=== PATIENT | male | born 1935 | race Caucasian/White ===

== ENCOUNTER → 2016-12-29 | Outpatient (CLI) | payer MEDICARE | END | disposition home or self-care (01) | LOC: PCVCIMAG 13:43 | PROVIDERS: ATTEND Nuclear Medicine Nuclear Cardiology | DX: I70.211 Atherosclerosis of native arteries of extremities with intermittent claudication, right leg (principal); I72.3 Aneurysm of iliac artery; I25.10 Atherosclerotic heart disease of native coronary artery without angina pectoris; I10 Essential (primary) hypertension; J44.9 Chronic obstructive pulmonary disease, unspecified; F17.200 Nicotine dependence, unspecified, uncomplicated; E78.00 Pure hypercholesterolemia, unspecified | CPT/HCPCS: 93925; G0463 ==

== ENCOUNTER → 2017-03-04 | Outpatient (CLI) | payer MEDICARE | END | disposition home or self-care (01) | LOC: PCVCCLINIC 10:42 | PROVIDERS: ATTEND Internal Medicine Cardiovascular Disease | DX: I25.10 Atherosclerotic heart disease of native coronary artery without angina pectoris (principal); I10 Essential (primary) hypertension; I73.9 Peripheral vascular disease, unspecified; I77.89 Other specified disorders of arteries and arterioles; E78.5 Hyperlipidemia, unspecified; R27.0 Ataxia, unspecified; J44.9 Chronic obstructive pulmonary disease, unspecified; I65.23 Occlusion and stenosis of bilateral carotid arteries; F17.200 Nicotine dependence, unspecified, uncomplicated; E78.00 Pure hypercholesterolemia, unspecified; Z89.412 Acquired absence of left great toe; Z79.82 Long term (current) use of aspirin | CPT/HCPCS: 80061; 93005; G0463 ==

== ENCOUNTER → 2017-06-25 | Outpatient (CLI) | payer MEDICARE ==
--- NOTE | 2017-06-25 14:34 | PCVCIMAG ---
EXAM: NONINVASIVE ARTERIAL EXAMINATION OF BOTH LOWER EXTREMITIES INCLUDING PRE AND POST EXERCISE PRESSURE MEASUREMENTS AND DOPPLER WAVEFORMS INDICATION: Peripheral Arterial Disease. Leg pain. FINDINGS: Right Brachial: 194 mm Hg. Right Dorsalis Pedis: 200 mm Hg. Right Posterior Tibial: 189 mm Hg. Right ROMEL = 1.03. Left Brachial: 183 mm Hg. Left Dorsalis Pedis: 188 mm Hg. Left Posterior Tibial: 208 mm Hg. Left ROMEL = 1.07. Post Exercise: Right Brachial 188 mm Hg. Right Dorsalis Pedis: 175 mm Hg. Left Posterior Tibial: 203 mm Hg. Right ROMEL = 0.93. Left ROMEL = 1.08. IMPRESSION: No resting ischemia in the right lower extremity. No exercise induced ischemia in the right lower extremity. No resting ischemia in the left lower extremity. No exercise induced ischemia in the left lower extremity. LOC:[id number]
--- NOTE | 2017-06-25 14:36 | PCVCIMAG ---
EXAM: AORTOILIAC DUPLEX INDICATION: Peripheral arterial disease FINDINGS: AORTA: Suprarenal aorta measures maximum diameter of 2.1 cm. There is not a fusiform infrarenal aortic aneurysm. The infrarenal aorta measures maximum diameter of 2.1 cm. No aortic stenosis. RIGHT COMMON ILIAC ARTERY: Maximum diameter is 1.8 cm. No significant stenosis. RIGHT EXTERNAL ILIAC ARTERY: No significant stenosis. LEFT COMMON ILIAC ARTERY: Maximum diameter is 1.7 cm. No significant stenosis. LEFT EXTERNAL ILIAC ARTERY: No significant stenosis. IMPRESSION: No abdominal aortic aneurysm. No aortoiliac stenosis seen. 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 LOC:[id number]
== END | disposition home or self-care (01) ==
LOC: PCVCIMAG 12:44
PROVIDERS: ATTEND Nuclear Medicine Nuclear Cardiology
DX: I73.9 Peripheral vascular disease, unspecified (principal); I72.3 Aneurysm of iliac artery; I77.9 Disorder of arteries and arterioles, unspecified; I10 Essential (primary) hypertension; E78.00 Pure hypercholesterolemia, unspecified; M79.605 Pain in left leg; M79.604 Pain in right leg; F17.210 Nicotine dependence, cigarettes, uncomplicated; Z95.820 Peripheral vascular angioplasty status with implants and grafts
CPT/HCPCS: 93923; 93978; G0463; 93924

== ENCOUNTER → 2018-04-26 | Outpatient (CLI) | payer MEDICARE ==
--- NOTE | 2018-04-26 14:21 | PCVCIMAG ---
EXAM: BILATERAL CAROTID DUPLEX INDICATION: Carotid Occlusive Disease. FINDINGS: Doppler Measurements (centimeters per second): RIGHT: Peak CCA-63, Peak ECA-56, Diastolic ICA-15, Peak ICA-59, ICA/CCA Ratio-1.0. LEFT: Peak CCA-67, Peak ECA-65, Diastolic ICA-12, Peak ICA-63, ICA/CCA Ratio-0.9. RIGHT CAROTID: The carotid bulb has moderate plaque. The proximal internal carotid artery shows <40% stenosis. The common carotid artery shows no significant stenosis. The external carotid artery shows no significant stenosis. LEFT CAROTID: The carotid bulb has mild plaque. The proximal internal carotid artery shows <40% stenosis. The common carotid artery shows no significant stenosis. The external carotid artery shows no significant stenosis. Antegrade flow in both vertebral arteries. IMPRESSION: <40% stenosis of the right internal carotid artery with moderate plaque. <40% stenosis of the left internal carotid artery with mild plaque. LOC:[place] [id number]
== END | disposition home or self-care (01) ==
LOC: PCVCIMAG 13:40
PROVIDERS: ATTEND Internal Medicine Cardiovascular Disease
DX: I65.23 Occlusion and stenosis of bilateral carotid arteries (principal); I73.9 Peripheral vascular disease, unspecified; I72.3 Aneurysm of iliac artery; I25.10 Atherosclerotic heart disease of native coronary artery without angina pectoris; I77.9 Disorder of arteries and arterioles, unspecified; I10 Essential (primary) hypertension; E78.00 Pure hypercholesterolemia, unspecified; J44.9 Chronic obstructive pulmonary disease, unspecified; Z79.82 Long term (current) use of aspirin; Z79.899 Other long term (current) drug therapy
CPT/HCPCS: 93005; 93880; G0463

== ENCOUNTER → 2019-01-17 | Outpatient (CLI) | payer MEDICARE ==
--- NOTE | 2019-01-17 15:32 | PCVCIMAG ---
EXAM: AORTOILIAC DUPLEX INDICATION: Aortoiliac aneurysm. FINDINGS: AORTA: Suprarenal aorta is not well seen due to overlying bowel gas. There is not a fusiform infrarenal aortic aneurysm. The infrarenal aorta measures maximum diameter of 2.4 cm. No aortic stenosis. RIGHT COMMON ILIAC ARTERY: Maximum diameter is 1.6 x 1.9 cm. No significant stenosis. RIGHT EXTERNAL ILIAC ARTERY: No significant stenosis. LEFT COMMON ILIAC ARTERY: Maximum diameter is 1.5 x 1.5 cm. No significant stenosis. LEFT EXTERNAL ILIAC ARTERY: No significant stenosis. IMPRESSION: No abdominal aortic aneurysm. No aortoiliac stenosis seen. 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 No significant change since June 2017 study. LOC:[id number]
--- NOTE | 2019-01-17 15:34 | PCVCIMAG ---
EXAM: BILATERAL LOWER EXTREMITY ARTERIAL DUPLEX INDICATION: Peripheral Arterial Disease. Leg pain. FINDINGS: Right Leg: Satisfactory arterial waveforms throughout the common/profunda/superficial femoral, popliteal, anterior tibial, peroneal, and posterior tibial arteries. No flow limiting stenosis seen. Left Leg: Satisfactory arterial waveforms throughout the common/profunda/superficial femoral, popliteal, anterior tibial, peroneal, and posterior tibial arteries. No flow limiting stenosis seen. IMPRESSION: No flow limiting stenosis in the right lower extremity. No flow limiting stenosis in the left lower extremity. LOC:[id number]
== END | disposition home or self-care (01) ==
LOC: PCVCIMAG 09:40
PROVIDERS: ATTEND Internal Medicine Cardiovascular Disease
DX: I72.3 Aneurysm of iliac artery (principal); I73.9 Peripheral vascular disease, unspecified
CPT/HCPCS: 93925; 93978